=== PATIENT | male | born 1955 | race Caucasian/White ===

== ENCOUNTER 2020-12-16 12:10 | Inpatient (IN) | payer MEDICARE, OTHER, SELFPAY ==
[2020-12-16] VITALS (11 sets, daily range): BP systolic 136–150; BP diastolic 81–106; PULSE 96–119; RESP 20–26; TEMP 36.1–37.6; O2SAT 92–100
--- NOTE | ~2020-12-16 | XR_ITS ---
EXAMINATION: XR chest ET placement EXAM DATE: 12/16/2020 13:52 INDICATION: Intubated. TECHNIQUE: Portable AP frontal chest x-ray was obtained. Comparison is made to prior examination from 05/19/2012. FINDINGS: Endotracheal tube tip is 5 centimeters above the melba. The lateral recesses were exclude d from the study. No evidence of pneumothorax or confluent consolidation. The cardiomediastinal silho uette is prominent but magnified on this AP technique. There are no osseous abnormalities identified. IMPRESSION: 1. ET tube in position. 2. No acute cardiopulmonary findings. Reviewed, dictated and finalized at location B. CTOR OF ACCOUNTING
--- NOTE | ~2020-12-16 | XR_ITS ---
EXAMINATION: XR abdomen NG/feed tube insert EXAM DATE: 12/16/2020 13:52 INDICATION: OG placement . TECHNIQUE: Frontal projection(s) of the abdomen for interpretation. There is no prior study for destiny abrams. FINDINGS: Feeding tube tip is overlying the gastric bubble. The side port is at the gastroesophageal junction. This could be safely advanced 5-10 cm. Cholecystectomy clips. Lung bases are clear. Nonobs tructive bowel gas pattern. IMPRESSION: Feeding tube tip in stomach but could be safely advanced 5-10 cm. Reviewed, dictated and finalized at location B. HEAD PRESS OPERATOR
--- NOTE | 2020-12-16 12:12 | ECG_ITS ---
Measurements Intervals [place] Rate: 113 P: 86 ME: 146 QRS: 83 QRSD: 117 T: 92 QT: 370 QTc: 509 Interpretive Statements SINUS TACHYCARDIA INTRAVENTRICULAR CONDUCTION DELAY DELAYED PRECORDIAL R/S TRANSITION ANTEROLATERAL ST ELEVATION MYOCARDIAL INJURY- ACUTE BASELINE WANDER- V6 ABNORMAL ECG Electronically Signed On 12-16-2020 13:05:07 FELLER MACHINE OPERATOR by Sixto Ghosh D.O.
--- NOTE | 2020-12-16 12:15 | ED_ITS ---
HPI - General Adult General Chief complaint: Cardiac Arrest/CPR Stated complaint: STEMI post arrest Time Seen by Provider: 12/16/20 12:14 History of Present Illness HPI narrative: Patient is a 65-year-old male who presents ER with concern for STEMI. Patient was witnessed arrest in the field. Patient found to be in V. fib by EMS. They delivered 1 shock and patient went into PEA. Then patient received chest compressions and 1 round of epinephrine. Repeat pulse check revealed review of spontaneous circulation. Patient has a left tibial IO placed by EMS. Additionally patient was intubated by EMS. Accu-Chek 86. Unknown if patient has cardiac history. Related Data Allergies Allergy/AdvReac Type Severity Reaction Status Date / Time iodine Allergy Severe Anaphylactic Verified 12/16/20 12:16 Shock Sulfa (Sulfonamide Allergy Intermediate Unknown Verified 12/16/20 12:16 Antibiotics) Contrast Media Allergy Severe ANAPHYLAXIS Uncoded 01/05/17 17:16 Mushroom Allergy Unknown Unknown Uncoded 12/16/20 12:16 Review of Systems Review of Systems: ROS unobtainable: Yes unobtainable due to medical condition [facility] Past Medical History Medical History (Updated 12/16/20 @ 12:26 by Bg Montes MD) COPD (chronic obstructive pulmonary disease) CVA (cerebral vascular accident) History of left heart catheterization Mitral valve prolapse Non-insulin dependent diabetes mellitus Polycythemia Seizures Surgical History Surgical History (Updated 12/16/20 @ 12:26 by Bg Montes MD) History of appendectomy History of percutaneous coronary intervention 2 stents in LAD Hx of tonsillectomy Exam Narrative: Exam Narrative: GENERAL: Ill-appearing, intubated, minimally responsive. HEAD: Normocephalic, abrasion left lateral eyebrow likely related to traumatic fall. ENT: Mucous membranes moist. CHEST: Clear to auscultation. No respiratory distress. HEART: Tachycardic and regular. Normal peripheral pulses. ABDOMEN: Soft, nontender, nondistended. EXTREMITIES: No deformity to the upper or lower extremities. Left lower extremity with tibial IO present. No edema. SKIN: Cool, dry, no rash. NEURO: Patient is not gagging on ET tube however he is breathing on his own. Does not seem to be localizing to pain or manipulation. Course Course Emergency Course: Cath team at bedside. Reviewed outside EKG with Dr. Gutierres with cardiology. Requests repeat EKG before going to feed mill lab technician. Repeat wiht STEMI. Cath team declines any additional management in the ED. Offered CT Head due to evidence of HI from fall, declined due to critical nature of heart disease. Medical Decision Making ECG Data EKG #1: ECG completion date: 12/16/20 ECG completion time: 12:12 Ischemic changes: acute STEMI EKG Interpretation: tachycardia (113), sinus rhythm, ST elevation (V2-6), normal QRS, normal QT and NL axis Critical Care Time Critical Care Time Critical Care Time: Yes Total Critical Care Time: 30 Discharge Plan Discharge Clinical Impression: ST elevation (STEMI) myocardial infarction Patient Disposition: Still a Patient Condition: Critical Follow-up/Referrals: UNKNOWN,DOCTOR [Primary Care Provider] -
[2020-12-16 12:48] LABS: Hematocrit 40.4 % (42.0-52.0); Hemoglobin 12.7 g/dL (14.0-18.0); Mean Corpuscular HGB Conc 31.4 g/dl (32-36); Mean Corpuscular Hemoglobin 28.5 pg (26-34); Mean Corpuscular Volume 90.6 fl (80-100); Platelet Count Result 318 k/mm3 (150-375); Red Blood Count 4.46 M/mm3 (4.6-6.20); Red Cell Distribution Width 14.8 % (11.5-14.5); White Blood Count 9.3 K/mm3 (4.5-10.0)
[2020-12-16 13:02] LABS: Albumin Level 3.4 g/dL (3.5-5.1); Alkaline Phosphatase 83 U/L (38-126); Anion Gap 12 mmol/L (8-16); Aspartate Amino Transferase 62 U/L (17-59); Bilirubin,Total 0.4 mg/dL (0.2-1.3); Blood Urea Nitrogen 9 mg/dL (9-20); Calcium 7.8 mg/dL (8.4-10.2); Carbon Dioxide 20 mmol/L (22-30); Chloride 107 mmol/L (98-107); Estimated Glomerular Filt Rate > 60; Glucose 248 mg/dL (75-110); Potassium 3.1 mmol/L (3.4-5.0); Sodium 139 mmol/L (137-145)
--- NOTE | 2020-12-16 13:14 | PM.IMHP ---
H&P: HPI History of Present Illness Date/Time: 12/16/20 13:14 Chief Complaint: out of hospital ventricular fibrillation Narrative: Ghassan Rodriguez is a 65 year old male Who is brought to the hospital this afternoon after being found in full cardiac arrest in his residence. The patient is unknown to me prior to this arrival. He apparently was found in the bathroom by his roommate on the floor unresponsive. 911 was called he was found to be in ventricular fibrillation. He was intubated and counter shocked in the field to spot return of spontaneous circulation. Upon arrival to [facility] his ECG shows sinus tachycardia and ST segment changes compatible with acute anterior wall injury. Someone in the emergency room apparently reported the history of no previous cardiac history. In this setting the patient is being brought to the cardiac catheterization lab. I have no other history of available to me at the time of this dictation. Review of Systems Review of Systems: ROS unobtainable: Yes unobtainable due to endotracheal tube and unobtainable due to medical condition PMFSH Past Medical History Medical History (Updated 12/16/20 @ 12:26 by Bg Montes MD) COPD (chronic obstructive pulmonary disease) CVA (cerebral vascular accident) History of left heart catheterization Mitral valve prolapse Non-insulin dependent diabetes mellitus Polycythemia Seizures Surgical History Surgical History (Updated 12/16/20 @ 12:26 by Bg Montes MD) History of appendectomy History of percutaneous coronary intervention 2 stents in LAD Hx of tonsillectomy Meds Home Medications and Allergies Allergies Allergy/AdvReac Type Severity Reaction Status Date / Time iodine Allergy Severe Anaphylactic Verified 12/16/20 12:16 Shock Sulfa (Sulfonamide Allergy Intermediate Unknown Verified 12/16/20 12:16 Antibiotics) Contrast Media Allergy Severe ANAPHYLAXIS Uncoded 01/05/17 17:16 Mushroom Allergy Unknown Unknown Uncoded 12/16/20 12:16 Vital Signs Vital Signs - 24 hr 12/16/20 12:09 12/16/20 12:25 Temperature 36.1 C L Pulse Rate 109 H 102 H Respiratory Rate 20 Pulse Oximetry 100 100 Exam Const: Other: White male well-developed well-nourished appears to be somewhat older than his stated age intubated and unresponsive, not sedated HENMT: Mouth: Yes moist mucous membranes Eyes: Pupils: Equal, round and reactive pupils present Neck: Neck: supple and no JVD Resp: Other: central rhonchi noted bilaterally symmetrical breath sounds with ventilator support Cardio: Rate: regular rate Rhythm: regular rhythm Other: no obvious murmur or gallop PMI difficult to palpate GI: GI Palp: Yes Soft to palpation Auscultation: normal bowel sounds Skin: General skin exam: normal color Neuro: Other: unresponsive as described above Extrem: Other: no edema distal pulses are diminished H&P: Results Labs Labs: [facility] 12/16/20 12:35 Sodium 139 Potassium 3.1 L Chloride 107 Carbon Dioxide 20 L BUN 9 Creatinine 0.90 Glucose 248 H Calcium 7.8 L Liver Function 12/16/20 Range/Units 12:35 Total Bilirubin 0.4 (0.2-1.3) mg/dL AST 62 H (17-59) U/L Alkaline Phosphatase 83 (38-126) U/L Albumin 3.4 L (3.5-5.1) g/dL Assessment and Plan Additional Plan 65-year-old white male with [id number] ventricular fibrillation arrest. ECG following defibrillation is compatible with acute anterior wall injury in this setting plans are being made for emergency coronary angiography and possible revascularization Harvey Gutierres MD MERGED WITH [facility]
[2020-12-16 13:15] LABS: Alanine Aminotransferase 35 U/L (4-50); Troponin I 0.112 ng/mL (0.000-0.034)
--- NOTE | 2020-12-16 13:17 | WPDCARDPROC ---
Cardiac Cath Procedure Note Date of procedure:: 12/16/20 Performing physician:: Harvey Gutierres MD Indication:: [id number] ventricular fibrillation with ECG evidence of acute anterior wall infarction Brief clinical history:: this is a 65-year-old patient who is incapable of providing any history. He was brought to the emergency room following resuscitation out of ventricular fibrillation at his home. ECG is compatible with acute anterior wall infarction. Procedure Procedure performed:: Emergency coronary angiography emergency PCI to LAD left ventriculography Sedation/Medication given:: no sedation administered Access site:: right femoral artery Estimated blood loss:: 30-40 cc Procedure note:: patient was brought to the cardiac catheterization lab in the emergency setting described above. The femoral triangle was prepared and draped in the normal fashion. Anesthesia was provided with 1% lidocaine infiltrated locally. Using the modified Seldinger technique a 6 [place]i sheath was placed into the femoral artery. After this I used a 5 [place]i JR4 catheter to engage inject the right coronary artery. After this a 6 [place]raini CLS 3.5 guiding catheter was used to engage inject the left coronary in multiple projections. After this PCI of the proximal LAD was recommended and carried out as detailed below. Prior to PCI the patient was systemically anticoagulated with bolus and infusion of Angiomax and he received aspirin and 180 mg of Brilinta down the NG tube. After this PCI of the LAD was carried out as detailed below. After this I used a 5 [place]i angled pigtail catheter to document left-sided hemodynamics and to inject and LV g in the TELLEZ projection. After this the case was terminated. He will be brought to the ICU for post OR PCI recovery and recovery from out of hospital ventricular fibrillation. Findings:: Hemodynamics: Central aortic pressure is 102/56 left ventricle 102/7 end-diastolic 22. There is no gradient upon pullback across the aortic valve. Left ventricle: The LV is markedly dilated there is severe global hypocontractility with an ejection fraction that of visually estimated to be 15-20%. Left main coronary artery is medium in caliber but is nicely patent the left anterior descending is a heavily diffusely diseased artery. There is visible stent material in the proximal 1/3 of the LAD. There was clearly more than 1 layer of prior stent material in the LAD proximally. Just after the origin of a proximal septal perforating branch the LAD is 100% occluded. Angiographically this is consistent with an acute thrombotic occlusion. Circumflex is a moderate caliber artery giving rise to the marginal branches. The circumflex has mild diffuse disease throughout. There is stent material visible in the proximal circumflex which is patent with no significant loss of lumen. Right coronary artery is dominant to the posterior circulation there is visible stent material in the proximal right coronary artery as well. This vessel is 100% occluded and has the angiographic appearance of a chronic total occlusion. Intervention: The left coronary artery was then intubated using a 6 [place]i CLS 3.5 guiding catheter. I used a 0.014 BMW coronary wire to traverse the proximal occlusion of the LAD and the wire was advanced into the distal apical portion of the vessel. I then used a 2.5 by 15 mm emerge PTCA balloon making multiple overlapping inflations over the entire proximal stented segment of the LAD. After this series of inflations there was brisk YENNI 3 flow in the LAD all the way down to the apex but the vessel is obviously heavily diffusely diseased. There is small diffuse disease throughout the entire LAD all the way down to the apex. Distal to the end of the stent material there was high-grade 80-90% stenosis I then made 2 overlapping inflations using a 2.5 x 20 mm PTCA balloon in this area. After this I used a 3 x 20 mm hi
[2020-12-16 13:24] LABS: INR 0.9; Prothrombin Time 13.1 Seconds (11.1-14.7)
--- NOTE | 2020-12-16 13:32 | ECG_ITS ---
Measurements Intervals [place] Rate: 98 P: 68 AL: 144 QRS: 73 QRSD: 136 T: 142 QT: 381 QTc: 487 Interpretive Statements SINUS RHYTHM INTRAVENTRICULAR CONDUCTI DELAYED PRECORDIAL R/S TRANSITION DELAY ANTERIOR ST ELEVATION- CONSIDER ACUTE INJURY BASELINE ARTIFACT- I, III, AVL ABNORMAL ECG Electronically Signed On 12-16-2020 14:47:54 PET SITTER by Sixto Ghosh D.O.
[2020-12-16] MEDS: SODIUM CHLORIDE 0.9% IV 1,000 ML 125 ML IV CONT (14:13)
--- NOTE | 2020-12-16 14:20 | PC.NURSE ---
Family to bedside. Son stated I would like to make patient comfort care. Dr. Beckford to bedside. family requested time with patient prior to extubation.
--- NOTE | 2020-12-16 14:27 | WPDCNINT ---
Assessment and Plan Assessment and plan (1) Cardiac arrest with ventricular fibrillation: Code(s): I46.9 - Cardiac arrest, cause unspecified; I49.01 - Ventricular fibrillation Status: Acute Assessment and Plan: Cardiac arrest with ventricular fibrillation, patient was defibrillated, CPR was performed by EMS on the field, with ROSC -in the ER, EKG showed ST-elevation in anterolateral leads -status post cardiac catheterization, with occlusion of the proximal LAD status post balloon angioplasty. According the washer hand the LAD was diffusely diseased in the was visible stent material in the proximal 1/3 of the LAD. This of the origin of the proximal septal perforating branch of the LAD was 100% occluded which required PTCA balloon angioplasty with multiple overlapping inflations with improvement of blood flow. - Patient also had proximal right coronary artery occlusion which seem to be chronic as it had some collaterals - patient with severe ischemic cardiomyopathy with a EF of 15-20% - (2) ST elevation (STEMI) myocardial infarction: Code(s): I21.3 - ST elevation (STEMI) myocardial infarction of unspecified site Status: Acute Assessment and Plan: STEMI as above, continue aspirin, Brilinta per cardiology -his blood pressures permit will add small dose of Coreg 3.125 mg q.12 hours (3) COPD (chronic obstructive pulmonary disease): Code(s): J44.9 - Chronic obstructive pulmonary disease, unspecified Status: Acute Assessment and Plan: Patient with history of COPD, will add bronchodilators (4) Diabetes: Code(s): E11.9 - Type 2 diabetes mellitus without complications Status: Acute Assessment and Plan: Will place patient on Accu-Cheks and sliding scale insulin (5) History of seizures: Code(s): Z87.898 - Personal history of other specified conditions Status: Acute Assessment and Plan: Patient is encephalopathic at this time, monitor for any can of seizures Additional Plan Discussed with son Ovi, updated with patient's condition plan of care. He also stated that patient has all his stents and cardiac workup done at [facility]. Primary washer hand is at the [place]. Son does realize that the patient's heart is significantly weak, his EF is 15-20%. The son states that the patient probably has a DNR and comfort measure peep was at home which has got to get. Once he has those papers he was make a decision. I answered all questions Code status: Full code Critical care time spent: 45 minutes Grassroots Organizer Consult Note Consult date: 12/16/20 Time Seen: 13:49 Reason for consult: Cardiac arrest, CPR, STEMI on EKG status post angiography, multivessel CAD with acute anterior wall infarction with occlusion of proximal LAD status post balloon angioplasty HPI: Ghassan Rodriguez is a 65 year old male medical history of coronary artery disease status post multiple stents, COPD, cerebral vascular accident, emphysema, diabetes, polycythemia, history of seizures, cardiomyopathy presented the ED after his roommate heard him fall in the bathroom, EMS was called, patient was found to be in VFib arrest, patient was defibrillated, CPR was started to with ROSC in the field. Patient was intubated, EKG showed ST elevations compatible with acute anterior wall IA. Patient was emergently taken to the labor relations analyst a was found to have occlusion of the proximal LAD status post balloon angioplasty. According the washer hand the LAD was diffusely diseased in the was visible stent material in the proximal 1/3 of the LAD. This of the origin of the proximal septal perforating branch of the LAD was 100% occluded which required PTCA balloon angioplasty with multiple overlapping inflations eyes improvement however like fluid. Patient also had proximal right coronary artery occlusion which seem to be chronic as 8 had some collaterals patient with severe ischemic cardiomyopathy with a EF of 15-20%. Rich
--- NOTE | 2020-12-16 14:32 | ADMGEN ---
This patient, Ghassan Rodriguez, was admitted to Intensive Care Unit-6 from [facility]. Patient/family oriented to hospital policies and general routines including ID bracelet, bed and alarms, visiting hours, pain management, procedures, bathroom and other care routines, personal items, smoking policy, room service/diet, and visiting hours. Information on how to activate the Rapid Response Team has been discussed. Patient/Family are encouraged to report perceived risks to care and to ask questions if they do not understand what they are told or what they should do.
[2020-12-16] MEDS: MORPHINE SULFATE INJ (*CRX) 10 MG/ML AMP 5 MG IV PUSH (16:57)
[2020-12-16] MEDS: LORazepam INJ (*CRX) 2 MG/ML VIAL IV PUSH ×3 (16:58→22:31)
[2020-12-16] MEDS: MORPHINE SULFATE (*CRX) 2 MG/ML INJ IV PUSH ×3 (17:45→22:31)
[2020-12-17] VITALS (13 sets, daily range): BP systolic 129–150; BP diastolic 82–102; PULSE 123–135; RESP 25–34; TEMP 38.2–38.4; O2SAT 73–92
[2020-12-17] MEDS: LORazepam INJ (*CRX) 2 MG/ML VIAL IV PUSH ×8 (00:46→13:50)
[2020-12-17] MEDS: MORPHINE SULFATE (*CRX) 2 MG/ML INJ IV PUSH ×12 (00:46→08:45)
[2020-12-17] MEDS: ATROPINE SULFATE 1% OPHTH SOLN 5 ML BOTTLE SUBLINGUAL ×2 (03:25→09:26)
--- NOTE | 2020-12-17 05:11 | ECG_ITS ---
Measurements Intervals [place] Rate: 121 P: 68 AR: 140 QRS: 113 QRSD: 110 T: 41 QT: 306 QTc: 435 Interpretive Statements SINUS TACHYCARDIA RIGHT AXIS DEVIATION ANTEROLATERAL ST ELEVATION MYOCARDIAL INFARCT- ACUTE BASELINE ARTIFACT- III, AVR, AVF, V6 ABNORMAL ECG Electronically Signed On 12-17-2020 8:49:41 RECRUITMENT SPECIALIST by Sixto Ghosh D.O.
[2020-12-17] MEDS: MORPHINE SULFATE (*CRX) 4 MG/ML INJ IV PUSH ×2 (09:26→10:14)
--- NOTE | 2020-12-17 10:39 | PM.PNCARD ---
Progress Note: A&P Assessment and Plan (1) Cardiac arrest with ventricular fibrillation: Code(s): I46.9 - Cardiac arrest, cause unspecified; I49.01 - Ventricular fibrillation Status: Acute Assessment and Plan: Unfortunately, pt suffered severe injury with resulting anoxic encaphalopathy and remains unresponsive. Family at bedside and have made decision earlier this morning to make him comfort measures/hospice. He was extubated earlier. We discussed his cath findings, his history and their decision. They are at peace with their decision and know he would not want to live with greater limitations than what he already experienced. Hospice care has already been consulted and initiated. All questions answered to son and accompanying family at bedside. Offered my condolences and any additional supportive care we can provide to let us know. (2) ST elevation (STEMI) myocardial infarction: Code(s): I21.3 - ST elevation (STEMI) myocardial infarction of unspecified site Status: Acute Assessment and Plan: s/p POBA to LAD due to multiple previously placed stents (3) Anoxic encephalopathy: Code(s): G93.1 - Anoxic brain damage, not elsewhere classified Status: Acute Assessment and Plan: as above. (4) Ischemic cardiomyopathy: Code(s): I25.5 - Ischemic cardiomyopathy Status: Acute Assessment and Plan: EF 10-15%. Subjective Date/time seen: Date of service: 12/17/20 10:39 Follow-up for anterior ST-elevation [place], severe ischemic cardiomyopathy, [id number] VF arrest, anoxic encephalopathy Family at bedside pt made comfort measures only/hospice care involved, extubated. Discussed their decision, offered our ongoing support given his clinical circumstances of which they were very aware due to his history. Review of Systems Review of Systems: ROS unobtainable: Yes unobtainable due to endotracheal tube and unobtainable due to medical condition Exam Const: Other: White male lying in bed unresponsive faint upper airway gurgling sounds, no distress, eyes closed. Visual examination Neck: Neck: no JVD Cardio: Rate: regular rate Rhythm: regular rhythm Other: by telemetry Skin: General skin exam: normal color Neuro: Other: unresponsive as described above Objective Data Vital Signs Vital Signs: Vital Signs - 24 hr 12/16/20 12:09 12/16/20 12:25 12/16/20 13:39 Temperature 36.1 C L Pulse Rate 109 H 102 H 98 Respiratory Rate 20 Blood Pressure Pulse Oximetry 100 100 100 12/16/20 13:47 12/16/20 14:00 12/16/20 14:17 Temperature 36.6 C Pulse Rate 96 97 98 Respiratory Rate 24 H 26 H Blood Pressure 141/81 H 136/82 Pulse Oximetry 100 100 12/16/20 15:17 12/16/20 16:00 12/16/20 16:40 Temperature 37.2 C Pulse Rate 108 H 114 H 119 H Respiratory Rate 25 H 26 H Blood Pressure 145/106 H 150/98 H Pulse Oximetry 100 100 100 12/16/20 20:00 12/16/20 22:00 12/17/20 03:42 Temperature 37.6 C Pulse Rate 116 H 119 H 123 H Respiratory Rate 25 H 25 H 27 H Blood Pressure 150/95 H Pulse Oximetry 93 92 90 12/17/20 03:47 12/17/20 03:52 12/17/20 03:57 Temperature Pulse Rate 130 H 132 H 133 H Respiratory Rate 25 H 27 H 26 H Blood Pressure Pulse Oximetry 92 90 90 12/17/20 04:02 12/17/20 04:22 12/17/20 04:52 Temperature Pulse Rate 133 H 133 H 128 H Respiratory Rate 26 H 27 H 26 H Blood Pressure 135/95 H 129/82 Pulse Oximetry 90 89 L 91 12/17/20 05:52 12/17/20 06:52 12/17/20 07:35 Temperature 38.2 C H Pulse Rate 131 H 132 H 125 H Respiratory Rate 30 H 28 H 32 H Blood Pressure 137/102 H Pulse Oximetry 90 91 85 L 12/17/20 08:00 Temperature Pulse Rate 125 H Respiratory Rate 30 H Blood Pressure Pulse Oximetry 89 L Intake/Output Intake/Output: Intake & Output 12/14/20 12/15/20 12/16/20 12/17/20 23:59 23:59 23:59 23:59 Intake Total 375 Output Total 1577 Balance 375 -1578 Meds/Results Medi
[2020-12-17] MEDS: HYDROmorphone HCL INJ (*CRX) 1 MG/ML SYR 2 MG IV PUSH ×4 (10:56→13:50)
--- NOTE | 2020-12-17 11:22 | PM.IMCN ---
Assessment and Plan Assessment and plan (1) Palliative care by specialist: Code(s): Z51.5 - Encounter for palliative care Status: Acute Assessment and Plan: Discontinue morphine Hydromorphone 1 milligram/hour and 2 mg hourly as needed Continue lorazepam 2 mg every 2 hours as needed Glycopyrrolate 0.1 mg every 4 hours as needed Discussed with [id number] at bedside that is eminent (2) Anoxic encephalopathy: Code(s): G93.1 - Anoxic brain damage, not elsewhere classified Status: Acute (3) Ischemic cardiomyopathy: Code(s): I25.5 - Ischemic cardiomyopathy Status: Acute (4) Cardiac arrest with ventricular fibrillation: Code(s): I46.9 - Cardiac arrest, cause unspecified; I49.01 - Ventricular fibrillation Status: Acute (5) History of seizures: Code(s): Z87.898 - Personal history of other specified conditions Status: Acute (6) Diabetes: Qualifiers: Diabetes mellitus complication detail: with other circulatory complications Diabetes mellitus complication status: with circulatory complication Diabetes mellitus emt intermediate insulin use: unspecified emt intermediate insulin use status Diabetes mellitus type: type 2 Qualified Code(s): E11.59 - Type 2 diabetes mellitus with other circulatory complications Code(s): E11.9 - Type 2 diabetes mellitus without complications Status: Acute (7) COPD (chronic obstructive pulmonary disease): Qualifiers: COPD type: unspecified COPD Qualified Code(s): J44.9 - Chronic obstructive pulmonary disease, unspecified Code(s): J44.9 - Chronic obstructive pulmonary disease, unspecified Status: Acute (8) ST elevation (STEMI) myocardial infarction: Qualifiers: Involved coronary artery: unspecified coronary artery Qualified Code(s): I21.3 - ST elevation (STEMI) myocardial infarction of unspecified site Code(s): I21.3 - ST elevation (STEMI) myocardial infarction of unspecified site Status: Acute (9) Chronic pain: Qualifiers: Chronic pain type: other chronic pain Qualified Code(s): G89.29 - Other chronic pain Code(s): G89.29 - Other chronic pain Status: Acute Assessment and Plan: [employer]ANDY, berry Falk patient was receiving oxycodone 30mg tid (135 MME) as outpatient HPI Data of Consult Consult date: 12/17/20 Requesting Physician: Harvey Gutierres MD Primary Care Provider: UNKNOWN,DOCTOR Consult Narrative Narrative: Ghassan Rodriguze is a 65 year old male who survived cardiac arrest 12/16. Patient was defibrillated, CPR was performed by EMS on the field, with ROSC -in the ER, EKG showed ST-elevation in anterolateral leads -status post cardiac catheterization, with occlusion of the proximal LAD status post balloon angioplasty. According the ice platform supervisor the LAD was diffusely diseased in the was visible stent material in the proximal 1/3 of the LAD. This of the origin of the proximal septal perforating branch of the LAD was 100% occluded which required PTCA balloon angioplasty with multiple overlapping inflations with improvement of blood flow. - Patient also had proximal right coronary artery occlusion which seem to be chronic as it had some collaterals - patient with severe ischemic cardiomyopathy with a EF of 15-20% He remained intubated until the morning of December 17. Because of evidence of severe ischemic encephalopathy, family opted for comfort measures only and he was extubated. He required multiple injections of morphine 4 mg and lorazepam 2 mg and was still having dyspnea and struggling to breathe. Morphine was discontinued and hydromorphone 1 milligram/hour with 2 mg hourly p.r.n. bolus was ordered. Patient became more comfortable and with family at bedside. Review of Systems Review of Systems: ROS unobtainable: Yes unobtainable due to medical condition PMFSH Past Medical History Medical History (Revie
[2020-12-17] MEDS: HYDROmorphone HCL/PF (*CRX) 50 MG in SODIUM CHLORIDE 0.9% IV 95 ML IV CONT (11:55)
[2020-12-17] MEDS: GLYCOPYRROLATE INJ (*SP) 0.2 MG/ML VIAL 0.1 MG IV PUSH (11:56)
--- NOTE | 2020-12-18 11:31 | P.DN_ITS ---
Discharge Sum: Prov Provider Primary care physician: UNKNOWN,DOCTOR Admitting provider: Harevy Gutierres MD Consults: 12/16/20 Consult to Physician Routine Comment: Consulting Provider: Ludin Beckford Reason for consultation: STEMI, ICU admission Has provider been notified: Yes 12/17/20 Care Coordination Consult Routine Comment: Reason for Consult:: Hospice Referral Consult to Physician Routine Comment: Consulting Provider: Pb Dixon Reason for consultation: medical management/comfort care Has provider been notified: Yes Discharge Sum: Diag Contributing Factors (1) Ischemic cardiomyopathy: (2) Cardiac arrest with ventricular fibrillation: (3) ST elevation (STEMI) myocardial infarction: (4) Diabetes: (5) COPD (chronic obstructive pulmonary disease): (6) Anoxic encephalopathy: Discharge Sum: Summary Date and Time Date of admission: 12/16/20 12:17 Summary Details: Patient was a 65-year-old male with extensive cardiac history well known severe ischemic cardiomyopathy ejection fraction 15-20% multiple previously placed stents and prior myocardial infarction, history of COPD, prior stroke, diabetes mellitus, history of seizures presented December 16 with out of hospital ventricular fibrillation arrest status post defibrillation and CPR with ROSC brought to [place] ER with noted anterolateral ST elevations for which he was emergently taken to the catheterization lab by Dr. Gutierres. He was found he had a chronic total occlusion of the right coronary artery with collateral filling with 100% occlusion just after the origin of the proximal septal perforating branch consistent with the culprit vessel. Was noted this was angiographically consistent with an acute thrombotic occlusion. As such, patient underwent balloon angioplasty due to overlapping previously placed stent material in the LAD. There was confucianist of flow. He had patent stents in the circumflex noted as well. Stent material was also noted in the occluded right coronary artery. Severe ischemic cardiomyopathy ejection fraction 15-20% with severely dilated LV. Duration of patient's EF was not entirely clear and was noted to be unresponsive post intervention. Family then reported patient would not have wanted to continue with mechanical intubation and after family discussions they decided pt should be comfort care. His endotracheal tube was removed by the Critical Care physician in the ICU morning of 12/17/20 and passed in the afternoon with family at bedside. The family was clear on their decision and their understanding of the patient's wishes to remove life support. Palliative Care consultation had been obtained morning of 12/17/20 and we appreciate their assistance. Additional Data Confirmation of as documented by pronouncing clinician: other (see Palliative care physician documentation by Dr. Dixon) Family: at bedside Attending/PCP notified?: Yes Attending physician: Harvey Gutierres MD Was code activated?: No Autopsy requested?: No workers compensation claims examiner notified?: No Organ bank notified?: No Advance directives: Yes Hospice patient?: Yes
== END 2020-12-17 13:59 | disposition expired | DRG 251 ==
LOC: ANHED 12:27 → ANHICU 12:28
PROVIDERS: Admitting Provider Specialist; Emergency Provider Emergency Medicine; Visit Provider Internal Medicine Cardiovascular Disease
PROC: 4A023N7 Measurement of Cardiac Sampling and Pressure, Left Heart, Percutaneous Approach (ICD-10-PCS; CPT 93452; principal; 2020-12-16 12:15)
PROC: 02703ZZ Dilation of Coronary Artery, One Artery, Percutaneous Approach (ICD-10-PCS; CPT 92920; 2020-12-16 12:15)
DX: I21.09 ST elevation (STEMI) myocardial infarction involving other coronary artery of anterior wall (principal); G93.1 Anoxic brain damage, not elsewhere classified; I49.01 Ventricular fibrillation; I46.2 Cardiac arrest due to underlying cardiac condition; I25.5 Ischemic cardiomyopathy; I25.10 Atherosclerotic heart disease of native coronary artery without angina pectoris; I25.2 Old myocardial infarction; E11.59 Type 2 diabetes mellitus with other circulatory complications; G89.29 Other chronic pain; I34.1 Nonrheumatic mitral (valve) prolapse; D75.1 Secondary polycythemia; Z51.5 Encounter for palliative care; Z66 Do not resuscitate; Z79.891 Long term (current) use of opiate analgesic; Z86.73 Personal history of transient ischemic attack (TIA), and cerebral infarction without residual deficits; Z87.898 Personal history of other specified conditions; Z88.2 Allergy status to sulfonamides; Z88.8 Allergy status to other drugs, medicaments and biological substances; Z91.041 Radiographic dye allergy status; Z91.018 Allergy to other foods; Z95.5 Presence of coronary angioplasty implant and graft
CPT/HCPCS: 36415; 80053; 84484; 85027; 85610; 92920; 93005; 93458; 94002; 94003; 99291; A9270; C1725; C1769; C1887; C1894; J0171; J0583; J1170; J1644; J2060; J2270; J2704; J7030; J7040